=== PATIENT | male | born 1995 | race Caucasian/White ===

== ENCOUNTER 2018-01-10 16:30 | Emergency (ER) | payer OTHER ==
[2018-01-10] MEDS ORDERED: LIDOCAINE 1% MPF 5 ML VIAL ONE (17:23)
[2018-01-10] MEDS ORDERED: KETOROLAC 30 MG/ML INJ ONE (17:23)
[2018-01-10] MEDS ORDERED: NA CHLORIDE 0.9% 1,000 ML ONE (17:23)
[2018-01-10] MEDS ORDERED: CEFTRIAXONE/SWI 1gm 1 GM/10 ML SYR ONE (17:25)
[2018-01-10 17:47] LABS: Absolute Lymphocytes (CBC) 1.5 K/uL (0.7-4.9); Absolute Monocytes 1.2 K/uL (0.1-1.3); Absolute Neutrophil 10.4 K/uL (1.8-8.0); Basophils % 0.3 % (0-1.3); Eosinophils % 0.2 % (0-4.4); Hematocrit 45.2 % (39.6-49.0); Lymphocytes % 11.1 % (15.3-44.8); MCH 27.8 pg (27.0-35.0); MCV 83.5 fL (80-100); MPV 8.6 fL (7.6-11.3); Monocytes % 9.3 % (3.3-12.3); RBC Red Blood Cell Count 5.41 M/uL (4.33-5.43)
[2018-01-10 18:03] LABS: Albumin 4.3 g/dL (3.4-5.0); Bilirubin Total 3.1 mg/dL (0.2-1.0); Protein, Total 8.6 g/dL (6.4-8.2)
--- NOTE | 2018-01-10 18:06 | ER ---
Nurse's Notes [facility] Name: Lanre Ruth Age: 22 yrs Sex: Male : 1995 Arrival Date: 01/10/2018 Time: 16:33 Bed 20 Private MD: Out, [facility] Diagnosis: Oral Aphthous Ulcers;Cellulitis and Abscess of Left Hand PIP Index Finger;Streptococcal pharyngitis Presentation: 01/10 16:48 Presenting complaint: Patient states: Left index finger swelling and redness, a wound sg noted, pt has lanced several days ago, reports swelling to the Left side of neck, reports having a tonsillectomy several years ago. Transition of care: patient was not received from another setting of care. Onset of symptoms was January 10, 2018. Risk Assessment: Do you want to hurt yourself or someone else? Patient reports no desire to harm self or others. Initial Sepsis Screen: Does the patient meet any 2 criteria? HR > 90 bpm. Does the patient have a suspected source of infection? Yes: Skin breakdown/wound. Care prior to arrival: None. 16:48 Method Of Arrival: Ambulatory sg 16:48 Acuity: LUÍS 3 sg Historical: - Allergies: 16:50 No Known Allergies; sg - Home Meds: 16:50 None [Active]; sg - PMHx: 16:50 None; sg - PSHx: 16:50 Tonsillectomy; sg - Immunization history:: Adult Immunizations up to date, Last tetanus immunization: up to date. - Social history:: Smoking status: Patient uses tobacco products, denies chronic smoking, but will smoke occasionally. - Ebola Screening: : Patient negative for fever greater than or equal to 101.5 degrees Fahrenheit, and additional compatible Ebola Virus Disease symptoms Patient denies exposure to infectious person Patient denies travel to an Ebola-affected area in the 21 days before illness onset No symptoms or risks identified at this time. - Family history:: not pertinent. - Hospitalizations: : No recent hospitalization is reported. - History obtained from: friend. Screenin:10 Abuse screen: Denies threats or abuse. Nutritional screening: No deficits noted. em Tuberculosis screening: No symptoms or risk factors identified. Fall Risk None identified. Assessment: 17:30 General: Appears in no apparent distress. uncomfortable, Behavior is calm, cooperative, em Reports sore throat for 2 days, swelling noted to tonsils, reports hand swelling for 1 week, left hand swelling noted. Pain: Complains of pain in left aspect of posterior pharynx and PIP of left index finger Pain currently is 8 out of 10 on a pain scale. Neuro: Level of Consciousness is awake, alert, obeys commands, Oriented to person, place, time, situation. Cardiovascular: Capillary refill < 3 seconds Patient's skin is warm and dry. Respiratory: Airway is patent Respiratory effort is even, unlabored, Respiratory pattern is regular, symmetrical. GI: Abdomen is flat, Patient currently denies nausea, vomiting. : No signs and/or symptoms were reported regarding the genitourinary system. EENT: Throat is reddened has enlarged tonsils bilaterally with gag reflex absent, Reports difficulty swallowing since this morning. Derm: Skin is intact, Abscess located on PIP of left index finger is quarter sized. Musculoskeletal: Range of motion: intact in all extremities. 17:30 Reassessment: I agree with assessment completed by EMILY Marquez . aa5 18:37 Reassessment: Patient appears in no apparent distress at this time. Patient and/or em family updated on plan of care and expected duration. Pain level reassessed. Patient is alert, oriented x 3, equal unlabored respirations, skin warm/dry/pink. Patient states feeling better. Patient states symptoms have improved. Vital Signs: 16:50 BP 122 / 100; Pulse 102; Resp 17; Temp 99.8; Pulse Ox 99% on R/A; Weight 61.23 kg (R); sg Pain 8/10; 18:23 BP 121 / 61; Pulse 76; Resp 16; Pulse Ox 99% on R/A; Pain 3/10; em ED Course: 16:33 Patient arrived in ED. sb2 16:34 Out, of Town is Private Physician. sb2 16:49 Triage completed. sg 16:50 Arm band placed on. sg 16:52 [facility]. kav 16:52 Tani Plummer MD is Attending Physician. kav 17:02 Patient has correct armband on for positive identification. Bed in low position. Call em light in reach. Adult w/ patient. 17:16 Jimmy Anne LVN is Primary Nurse. em 17:30 No provider procedures requiring assistance completed. Inserted saline lock: 20 gauge em in right antecubital area, using aseptic technique. Blood collected. 17:30 Initial lab(s) drawn, by me, sent to lab. em 18:44 IV discontinued, intact, bleeding controlled, No redness/swelling at site. Pressure em dressing applied. Administered Medications: 17:38 Drug: Rocephin 1 grams Route: IV; Rate: bolus; Site: right antecubital; aa5 18:24 Follow up: Response: No adverse reaction; IV Status: Completed infusion; IV Intake: 10mlem 17:38 Drug: TORadol 30 mg Route: IVP; Site: right antecubital; aa5 18:24 Follow up: Response: No adverse reaction; Pain is decreased em 17:44 Drug: NS 0.9% 1000 ml Route: IV; Rate: 1 bolus; Site: right antecubital; em 17:55 Drug: Lidocaine (1 %) 5 mg {Note: administered by SARWAT Falk.} Route: Infiltration; em Site: wound; 18:24 Follow up: Response: No adverse reaction em Intake: 18:24 IV: 10ml; Total: 10ml. em Outcome: 18:06 Discharge ordered by . ka 18:44 Discharged to home ambulatory, with friend. em 18:44 Condition: good 18:44 Discharge instructions given to patient, Instructed on discharge instructions, follow up and referral plans. no drinking with medication, no driving heavy equipment, medication usage, wound care, Demonstrated understanding of instructions, follow-up care, medications, Prescriptions given X 5 18:46 Patient left the ED. em Addendum: 01/13/2018 08:23 Addendum: Culture Results: Positive wound culture. No further action required. Bacteria i w sensitive to prescribed antibiotic. Signatures: Cyril Pacheco RN RN sg Amanda Braden, TELECOMMUNICATIONS TECHNICIAN TELECOMMUNICATIONS TECHNICIAN Jimmy Crockett, FLIGHT ATTENDANT/INFLIGHT SUPERVISOR FLIGHT ATTENDANT/INFLIGHT SUPERVISOR em Jayshree Mazariegos RN RN Evelyn Godfrey RN RN aa5 Mohini Mayorga sb2 Corrections: (The following items were deleted from the chart) 01/10 18:44 16:30 No provider procedures requiring assistance completed. em em 18:44 16:30 Inserted saline lock: 20 gauge in right antecubital area, using aseptic em technique. Blood collected. em 18:44 16:30 Initial lab(s) drawn, by me, sent to lab. em em
--- NOTE | 2018-01-10 18:06 | EDPHYS ---
Physician Documentation [facility] Name: Lanre Ruth Age: 22 yrs Sex: Male : 1995 Arrival Date: 01/10/2018 Time: 16:33 Bed 20 Private MD: Out, [facility] ED Physician Tani Plummer HPI: 01/10 16:52 This 22 yrs old Male presents to ER via Ambulatory with complaints of Swollen kav Glands, Hand Swelling. 17:06 The patient presents with sore throat, dysphagia, of solids. The patient describes kav throat pain as burning. Onset: The symptoms/episode began/occurred acutely, 2 day(s) ago. The patient or guardian reports pain, swelling. The complaints affect the PIP of left index finger. Context: The problem was sustained at home, resulted from an unknown cause. Severity of symptoms: At their worst the symptoms were moderate, just prior to arrival, in the emergency department the symptoms a " 6" out of "10". Associated signs and symptoms:. patient presents with swollen, warm, erythema left hand of the PIP left index finger. he reports that his friends have been squeezing it trying to expel pustular discharge. this area is very tender to touch. he also c/o of fever/chills, sore throat and swollen lymph node left cervical and reports that he has been unable to swallow solid foods for the past 2 days owing to sore throat. Historical: - Allergies: 16:50 No Known Allergies; sg - Home Meds: 16:50 None [Active]; sg - PMHx: 16:50 None; sg - PSHx: 16:50 Tonsillectomy; sg - Immunization history:: Adult Immunizations up to date, Last tetanus immunization: up to date. - Social history:: Smoking status: Patient uses tobacco products, denies chronic smoking, but will smoke occasionally. - Ebola Screening: : Patient negative for fever greater than or equal to 101.5 degrees Fahrenheit, and additional compatible Ebola Virus Disease symptoms Patient denies exposure to infectious person Patient denies travel to an Ebola-affected area in the 21 days before illness onset No symptoms or risks identified at this time. - Family history:: not pertinent. - Hospitalizations: : No recent hospitalization is reported. - History obtained from: friend. ROS: 17:13 Eyes: Negative for injury, pain, redness, and discharge, Cardiovascular: Negative for kav chest pain, palpitations, and edema, Respiratory: Negative for shortness of breath, cough, wheezing, and pleuritic chest pain, Abdomen/GI: Negative for abdominal pain, nausea, vomiting, diarrhea, and constipation, Back: Negative for injury and pain, : Negative for injury, bleeding, discharge, and swelling, MS/Extremity: Negative for injury and deformity, Neuro: Negative for headache, weakness, numbness, tingling, and seizure, Psych: Negative for depression, anxiety, suicide ideation, homicidal ideation, and hallucinations, Allergy/Immunology: Negative for hives, rash, and allergies, Endocrine: Negative for neck swelling, polydipsia, polyuria, polyphagia, and marked weight changes, Hematologic/Lymphatic: Negative for swollen nodes, abnormal bleeding, and unusual bruising. 17:13 Constitutional: Positive for chills, fever, poor PO intake, Negative for body aches, weight loss. 17:13 ENT: Positive for of the left aspect of posterior pharynx, sinus congestion, sore throat. 17:13 Skin: Positive for abscess, cellulitis, erythema, swelling, of the PIP of left index finger. Exam: 17:13 Head/Face: Normocephalic, atraumatic. Eyes: Pupils equal round and reactive to light, kav extra-ocular motions intact. Lids and lashes normal. Conjunctiva and sclera are non-icteric and not injected. Cornea within normal limits. Periorbital areas with no swelling, redness, or edema. Chest/axilla: Normal chest wall appearance and motion. Nontender with no deformity. No lesions are appreciated. Cardiovascular: Regular rate and rhythm with a normal S1 and S2. No gallops, murmurs, or rubs. Normal PMI, no JVD. No pulse deficits. Respiratory: Lungs have equal breath sounds bilaterally, clear to auscultation and percussion. No rales, rhonchi or wheezes noted. No increased work of breathing, no retractions or nasal flaring. Abdomen/GI: Soft, non-tender, with normal bowel sounds. No distension or tympany. No guarding or rebound. No evidence of tenderness throughout. Back: No spinal tenderness. No costovertebral tenderness. Full range of motion. MS/ Extremity: Pulses equal, no cyanosis. Neurovascular intact. Full, normal range of motion. Neuro: Awake and alert, GCS 15, oriented to person, place, time, and situation. Cranial nerves II-XII grossly intact. Motor strength 5/5 in all extremities. Sensory grossly intact. Cerebellar exam normal. Normal gait. Psych: Awake, alert, with orientation to person, place and time. Behavior, mood, and affect are within normal limits. 17:13 Constitutional: The patient appears in no acute distress, alert, awake, non-diaphoretic, non-toxic, well developed, well hydrated, well groomed, well nourished, febrile, in obvious distress, uncomfortable. 17:13 ENT: Posterior pharynx: erythema, that is moderate, blisters. 17:13 Neck: Lymph nodes: lymphadenopathy is appreciated, posterior cervical nodes, left. 17:13 Skin: abscess, that is moderate sized, approximately 2 cm(s), with surrounding cellulitis, that is moderate, cellulitis, that is moderate, well demarcated, on the PIP of left index finger. Vital Signs: 16:50 BP 122 / 100; Pulse 102; Resp 17; Temp 99.8; Pulse Ox 99% on R/A; Weight 61.23 kg (R); sg Pain 8/10; 18:23 BP 121 / 61; Pulse 76; Resp 16; Pulse Ox 99% on R/A; Pain 3/10; em Procedures: 17:13 I \\T\\ D: Incision and drainage was performed for an abscess of the left PIP of left index kav finger Prepped with Betadine, Anesthetized with 3 ml's 1% Lidocaine. Incised with #11 blade. Drained small amount Dressing: non-Adherent dressing, the patient tolerated the procedure well. MDM: 17:05 Medical screening is not applicable. [facility] 17:13 Data reviewed: vital signs, nurses notes, lab test result(s). 18:05 Data reviewed: lab test result(s), strep positive. [facility] 01/10 17:05 Order name: Strep: left side of throat; Complete Time: 18:02 [facility] 01/10 17:05 Order name: CBC with Diff; Complete Time: 18:02 [facility] 01/10 17:05 Order name: CMP; Complete Time: 18:04 [facility] 01/10 17:19 Order name: Wound Culture 01/10 17:05 Order name: I\\T\\D Setup; Complete Time: 18:38 kav Administered Medications: 17:38 Drug: Rocephin 1 grams Route: IV; Rate: bolus; Site: right antecubital; aa5 18:24 Follow up: Response: No adverse reaction; IV Status: Completed infusion; IV Intake: 10mlem 17:38 Drug: TORadol 30 mg Route: IVP; Site: right antecubital; aa5 18:24 Follow up: Response: No adverse reaction; Pain is decreased em 17:44 Drug: NS 0.9% 1000 ml Route: IV; Rate: 1 bolus; Site: right antecubital; em 17:55 Drug: Lidocaine (1 %) 5 mg {Note: administered by NP. Deya} Route: Infiltration; em Site: wound; 18:24 Follow up: Response: No adverse reaction em Disposition: 01/10/18 18:06 Discharged to Home. Impression: Oral Aphthous Ulcers, Cellulitis and Abscess of Left Hand PIP Index Finger, Streptococcal pharyngitis. - Condition is Stable. - Discharge Instructions: Pharyngitis, Strep Throat, Abscess, [id number], Cellulitis, [id number]. - Prescriptions for mupirocin 2 % Topical ointment - apply 1 application by TOPICAL route 3 times per day; 1 tube. Amoxicillin 875 mg Oral Tablet - take 1 tablet by ORAL route every 12 hours for 10 days; 20 tablet. Ibuprofen 800 mg Oral Tablet - take 1 tablet by ORAL route every 8 hours As needed take with food; 30 tablet. Tylenol- Codeine #3 300-30 mg Oral Tablet - take 2 tablet by ORAL route every 6 hours As needed; 30 tablet. Doxycycline Hyclate 100 mg Oral Tablet - take 1 tablet by ORAL route every 12 hours; 20 tablet. - Work release form, Medication Reconciliation Form, Thank You Letter, Antibiotic Education, Prescription Opioid Use form. - Follow up: Private Physician; When: 2 - 3 days; Reason: Recheck today's complaints, Continuance of care, Re-evaluation by your physician. - Problem is new. - Symptoms have improved. Addendum: 01/12/2018 20:35 Co-signature as Attending Physician, Tani Plummer MD I agree with the assessment and k dr plan of care. Signatures: Dispatcher [employer] Cyril Euceda, RN RN sg Tani Plummer MD MD kdr Vern, Katherine, BILLBOARD ERECTOR BILLBOARD ERECTOR Jimmy Crockett, SUPERINTENDENT RENTING MANAGING SUPERINTENDENT RENTING MANAGING Evelyn Stephenson, RN RN aa5 Corrections: (The following items were deleted from the chart) 01/10 18:46 18:06 01/10/2018 18:06 Discharged to Home. Impression: Oral Aphthous Ulcers; Cellulitis em and Abscess of Left Hand PIP Index Finger; Streptococcal pharyngitis. Condition is Stable. Discharge Instructions: Abscess, [id number], Cellulitis, [id number]-Izma. Prescriptions for mupirocin 2 % Topical ointment - apply 1 application by TOPICAL route 3 times per day; 1 tube, Amoxicillin 875 mg Oral Tablet - take 1 tablet by ORAL route every 12 hours for 10 days; 20 tablet, Ibuprofen 800 mg Oral Tablet - take 1 tablet by ORAL route every 8 hours As needed take with food; 30 tablet, Tylenol-Codeine #3 300-30 mg Oral Tablet - take 2 tablet by ORAL route every 6 hours As needed; 30 tablet, Doxycycline Hyclate 100 mg Oral Tablet - take 1 tablet by ORAL route every 12 hours; 20 tablet. and Forms are Medication Reconciliation Form, Thank You Letter, Antibiotic Education, Prescription Opioid Use. Follow up: Private Physician; When: 2 - 3 days; Reason: Recheck today's complaints, Continuance of care, Re-evaluation by your physician. Problem is new. Symptoms have improved. kav
== END 2018-01-10 18:46 | disposition home or self-care (01) ==
LOC: ER 16:30
PROC: 0H9GXZZ Drainage of Left Hand Skin, External Approach (ICD-10-PCS; principal; 2018-01-10)
DX: K12.0 Recurrent oral aphthae (principal); J02.0 Streptococcal pharyngitis; L03.012 Cellulitis of left finger; Z72.0 Tobacco use
CPT/HCPCS: 36415; 80053; 85025; 87070; 87077; 87081; 87186; 87205; 96365; 96375; 99284; J0696; J7030

== ENCOUNTER 2019-02-10 18:27 | Emergency (ER) | payer OTHER, SELFPAY ==
[2019-02-10] MEDS ORDERED: NA CHLORIDE 0.9% 1,000 ML ONE (19:19)
[2019-02-10] MEDS ORDERED: ONDANSETRON 4 MG/2 ML VIAL ONE (19:19)
[2019-02-10 19:37] LABS: Absolute Lymphocytes (CBC) 2.4 K/uL (0.7-4.9); Basophils % 0.7 % (0-1.3); Hematocrit 41.5 % (39.6-49.0); Lymphocytes % 33.2 % (15.3-44.8); MPV 9.1 fL (7.6-11.3)
[2019-02-10 20:00] LABS: Albumin 4.2 g/dL (3.4-5.0); Bilirubin Total 0.5 mg/dL (0.2-1.0); Potassium 3.6 mmol/L (3.5-5.1); Protein, Total 7.7 g/dL (6.4-8.2)
[2019-02-10 20:08] LABS: Urine Blood NEGATIVE (NEG); Urine Glucose NEGATIVE (NEG); Urine Protein NEGATIVE (NEG); Urine Specific Gravity 1.025 (1.005-1.030)
--- NOTE | 2019-02-10 20:14 | RAD REPORT ---
EXAM DESCRIPTION: CT - Head Brain Wo Cont - 02/10/2019 7:55 pm CLINICAL HISTORY: HEADACHE COMPARISON: No comparisons TECHNIQUE: All CT scans are performed using dose optimization technique as appropriate and may inclu de automated exposure control or mA/KV adjustment according to patient size. FINDINGS: No intracranial hemorrhage, hydrocephalus or extra-axial fluid collection.No areas of brai n edema or evidence of midline shift. Ethmoid air cell opacification is noted compatible with mild sinusitis. The calvarium is intact. IMPRESSION: No acute intracranial abnormality.
--- NOTE | 2019-02-10 20:36 | ER ---
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 Transition of care: patient was not received from another setting of care. Onset of symptoms was February 10, 2019. Risk Assessment: Do you want to hurt yourself or someone else? Patient reports no desire to harm self or others. Initial Sepsis Screen: Does the patient meet any 2 criteria? No. Patient's initial sepsis screen is negative. Does the patient have a suspected source of infection? No. Patient's initial sepsis screen is negative. Care prior to arrival: None. 18:42 Method Of Arrival: Ambulatory la1 18:42 Acuity: LUÍS 3 la1 Historical: - Allergies: 18:43 No Known Allergies; la1 - PMHx: 18:43 None; la1 - Immunization history:: Adult Immunizations up to date. - Social history:: Smoking status: Patient/guardian denies using tobacco. - Ebola Screening: : No symptoms or risks identified at this time. Screenin:06 Abuse screen: Denies threats or abuse. Nutritional screening: No deficits noted. ea Tuberculosis screening: No symptoms or risk factors identified. Fall Risk None identified. Assessment: 19:05 General: Appears in no apparent distress. Behavior is appropriate for age. Pain: ea Complains of pain in headache. Neuro: Level of Consciousness is awake, alert, obeys commands, Oriented to person, place, time, situation. Cardiovascular: Patient's skin is warm and dry. Respiratory: Airway is patent Respiratory effort is even, unlabored, Respiratory pattern is regular, symmetrical. EENT: Reports nose bleeds. Derm: Skin is pink, warm \T\ dry. 20:07 Reassessment: Patient and/or family updated on plan of care and expected duration. Pain ea level reassessed. Patient is alert, oriented x 3, equal unlabored respirations, skin warm/dry/pink. Returned from CT. 21:30 Reassessment: Patient and/or family updated on plan of care and expected duration. Pain ea level reassessed. Patient is alert, oriented x 3, equal unlabored respirations, skin warm/dry/pink. Discharge instruction given to patient, verbalized the understanding of instruction. Pt left with significant other, pt tolerating well. Vital Signs: 18:44 BP 121 / 72; Pulse 61; Resp 16; Temp 97.4; Pulse Ox 98% on R/A; Weight 74.84 kg; Height la1 5 ft. 7 in. (170.18 cm); 19:32 BP 105 / 71; Pulse 48; Resp 18; Pulse Ox 100% ; ea 20:30 BP 130 / 68; Pulse 60; Resp 18; Pulse Ox 99% on R/A; ea 21:20 BP 127 / 60; Pulse 60; Resp 18; Pulse Ox 99% on R/A; ea 18:44 Body Mass Index 25.84 (74.84 kg, 170.18 cm) la1 ED Course: 18:29 Patient arrived in ED. as 18:43 Triage completed. la1 18:44 Arm band placed on left wrist. la1 19:01 Khalif Walters MD is Attending Physician. agata 19:03 Lorena Sarmiento RN is Primary Nurse. ea 19:06 Patient has correct armband on for positive identification. Bed in low position. Call ea light in reach. 19:54 CT completed. Patient tolerated procedure well. Patient moved to CT. Patient moved back tx from CT. 19:55 CT Head Brain wo Cont In Process Unspecified. EDMS 20:34 Awilda Valentine MD is Referral Physician. agata 21:28 No provider procedures requiring assistance completed. IV discontinued, intact, ea bleeding controlled, No redness/swelling at site. Pressure dressing applied. Administered Medications: 19:29 Drug: NS 0.9% 1000 ml Route: IV; Rate: 1 bolus; Site: right antecubital; ea 20:00 Follow up: Response: No adverse reaction; IV Status: Completed infusion; IV Intake: ea 1000ml 19:29 Drug: Zofran 4 mg Route: IVP; Site: right antecubital; ea 20:54 Follow up: Response: No adverse reaction; Marked relief of symptoms ea 20:35 Drug: Rocephin (cefTRIAXone) 1 grams Route: IM; Site: right gluteus; ea 21:32 Follow up: Response: No adverse reaction ea 21:05 Drug: Augmentin 875 mg Route: PO; ea 21:32 Follow up: Response: No adverse reaction ea 21:06 Not Given (Other Intervention Used): Rocephin 1 grams IV at per protocol once; Given ea slow IV push per pharmacy instructions Intake: 20:00 IV: 1000ml; Total: 1000ml. ea Outcome: 20:35 Discharge ordered by . agata 21:28 Discharged to home ambulatory, with significant other. ea 21:28 Condition: stable 21:28 Discharge instructions given to patient, Instructed on discharge instructions, follow up and referral plans. medication usage, Demonstrated understanding of instructions, follow-up care, medications, Prescriptions given X 1. 21:31 Patient left the ED. ea Signatures: Dispatcher [employer] EDKhalif Yanez MD MD cha Martinez, Amelia as Attema, Lee RN RN laRubio Chappell Elena, RN RN yohana
--- NOTE | 2019-02-10 20:37 | EDPHYS ---
Physician Documentation [facility] Name: Lanre Ruth Age: 23 yrs Sex: Male : 1995 Arrival Date: 02/10/2019 Time: 18:29 Bed 13 Private MD: ED Physician Khalif Walters HPI: 02/10 19:57 This 23 yrs old Male presents to ER via Ambulatory with complaints of agata Headache, Nose Bleed, Vomiting, General Weakness. 19:57 The patient complains of pain to the forehead, left frontal area and right frontal agata area. The patient describes the headache as aching. Onset: The symptoms/episode began/occurred 3 day(s) ago. Associated signs and symptoms: The patient has no apparent associated signs or symptoms. Historical: - Allergies: 18:43 No Known Allergies; la1 - PMHx: 18:43 None; la1 - Immunization history:: Adult Immunizations up to date. - Social history:: Smoking status: Patient/guardian denies using tobacco. - Ebola Screening: : No symptoms or risks identified at this time. ROS: 19:58 Constitutional: Negative for fever, chills, and weight loss, Eyes: Negative for injury, agata pain, redness, and discharge, Neck: Negative for injury, pain, and swelling, Cardiovascular: Negative for chest pain, palpitations, and edema, Respiratory: Negative for shortness of breath, cough, wheezing, and pleuritic chest pain, Abdomen/GI: Negative for abdominal pain, nausea, vomiting, diarrhea, and constipation, Back: Negative for injury and pain, : Negative for injury, bleeding, discharge, and swelling, MS/Extremity: Negative for injury and deformity, Skin: Negative for injury, rash, and discoloration, Psych: Negative for depression, anxiety, suicide ideation, homicidal ideation, and hallucinations, Allergy/Immunology: Negative for hives, rash, and allergies, Endocrine: Negative for neck swelling, polydipsia, polyuria, polyphagia, and marked weight changes, Hematologic/Lymphatic: Negative for swollen nodes, abnormal bleeding, and unusual bruising. 19:58 ENT: Positive for nose bleed. 19:58 Neuro: Positive for headache, weakness. Exam: 19:59 Constitutional: This is a well developed, well nourished patient who is awake, alert, agata and in no acute distress. Head/Face: Normocephalic, atraumatic. Eyes: Pupils equal round and reactive to light, extra-ocular motions intact. Lids and lashes normal. Conjunctiva and sclera are non-icteric and not injected. Cornea within normal limits. Periorbital areas with no swelling, redness, or edema. ENT: Nares patent. No nasal discharge, no septal abnormalities noted. Tympanic membranes are normal and external auditory canals are clear. Oropharynx with no redness, swelling, or masses, exudates, or evidence of obstruction, uvula midline. Mucous membranes moist. Neck: Trachea midline, no thyromegaly or masses palpated, and no cervical lymphadenopathy. Supple, full range of motion without nuchal rigidity, or vertebral point tenderness. No Meningismus. Chest/axilla: Normal chest wall appearance and motion. Nontender with no deformity. No lesions are appreciated. Cardiovascular: Regular rate and rhythm with a normal S1 and S2. No gallops, murmurs, or rubs. Normal PMI, no JVD. No pulse deficits. Respiratory: Lungs have equal breath sounds bilaterally, clear to auscultation and percussion. No rales, rhonchi or wheezes noted. No increased work of breathing, no retractions or nasal flaring. Abdomen/GI: Soft, non-tender, with normal bowel sounds. No distension or tympany. No guarding or rebound. No evidence of tenderness throughout. Back: No spinal tenderness. No costovertebral tenderness. Full range of motion. Male : Normal genitalia with no discharge or lesions. Skin: Warm, dry with normal turgor. Normal color with no rashes, no lesions, and no evidence of cellulitis. MS/ Extremity: Pulses equal, no cyanosis. Neurovascular intact. Full, normal range of motion. Neuro: Awake and alert, GCS 15, oriented to person, place, time, and situation. Cranial nerves II-XII grossly intact. Motor strength 5/5 in all extremities. Sensory grossly intact. Cerebellar exam normal. Normal gait. Psych: Awake, alert, with orientation to person, place and time. Behavior, mood, and affect are within normal limits. Vital Signs: 18:44 BP 121 / 72; Pulse 61; Resp 16; Temp 97.4; Pulse Ox 98% on R/A; Weight 74.84 kg; Height la1 5 ft. 7 in. (170.18 cm); 19:32 BP 105 / 71; Pulse 48; Resp 18; Pulse Ox 100% ; ea 20:30 BP 130 / 68; Pulse 60; Resp 18; Pulse Ox 99% on R/A; ea 21:20 BP 127 / 60; Pulse 60; Resp 18; Pulse Ox 99% on R/A; ea 18:44 Body Mass Index 25.84 (74.84 kg, 170.18 cm) la1 MDM: 19:01 Patient medically screened. [facility] 20:00 Data reviewed: vital signs, nurses notes, lab test result(s), radiologic studies, CT agata scan. 02/10 19:08 Order name: CBC with Diff; Complete Time: 20:12 [facility] 02/10 19:08 Order name: Comprehensive Metabolic Panel; Complete Time: 20:12 [facility] 02/10 19:08 Order name: PT-INR; Complete Time: 20:12 [facility] 02/10 19:08 Order name: Ptt, Activated; Complete Time: 20:12 [facility] 02/10 20:05 Order name: Urine Dipstick--Ancillary (enter results) ag4 02/10 20:10 Order name: Urine Dipstick-Ancillary; Complete Time: 20:12 EDMS 02/10 19:08 Order name: Urine Dipstick-Ancillary (obtain specimen); Complete Time: 20:08 [facility] 02/10 19:08 Order name: CT Head Brain wo Cont; Complete Time: 20:33 [facility] Administered Medications: 19:29 Drug: NS 0.9% 1000 ml Route: IV; Rate: 1 bolus; Site: right antecubital; ea 20:00 Follow up: Response: No adverse reaction; IV Status: Completed infusion; IV Intake: ea 1000ml 19:29 Drug: Zofran 4 mg Route: IVP; Site: right antecubital; ea 20:54 Follow up: Response: No adverse reaction; Marked relief of symptoms ea 20:35 Drug: Rocephin (cefTRIAXone) 1 grams Route: IM; Site: right gluteus; ea 21:32 Follow up: Response: No adverse reaction ea 21:05 Drug: Augmentin 875 mg Route: PO; ea 21:32 Follow up: Response: No adverse reaction ea 21:06 Not Given (Other Intervention Used): Rocephin 1 grams IV at per protocol once; Given ea slow IV push per pharmacy instructions Disposition: 02/10/19 20:35 Discharged to Home. Impression: Headache, Epistaxis, Acute ethmoidal sinusitis. - Condition is Stable. - Discharge Instructions: Nosebleed, Adult, Sinus Headache, Sinusitis, Adult, Sinusitis, Adult, [id number]. - Prescriptions for Augmentin 875- 125 mg Oral Tablet - take 1 tablet by ORAL route every 12 hours for 10 days; 20 tablet. Ibuprofen 600 mg Oral Tablet - take 1 tablet by ORAL route every 6 hours As needed take with food; 20 tablet. Zofran 4 mg Oral Tablet - take 1 tablet by ORAL route every 12 hours As needed; 14 tablet. Daina- D 12 Hour 60-120 mg Oral Tablet Sustained Release 12 hr - take 1 tablet by ORAL route every 12 hours As needed; 20 tablet. - Medication Reconciliation Form, Thank You Letter, Antibiotic Education, Prescription Opioid Use, Work release form form. - Follow up: Private Physician; When: 2 - 3 days; Reason: Recheck today's complaints, Continuance of care, Re-evaluation by your physician. Follow up: Awilda Valentine MD; When: 2 - 3 days; Reason: Recheck today's complaints, Re-evaluation by your physician. - Problem is new. - Symptoms have improved. Signatures: Dispatcher [employer] EDTX Khalif Walters MD MD cha Attema, Lee RN RN Lorena Newberry RN RN ea Corrections: (The following items were deleted from the chart) 21:31 20:35 02/10/2019 20:35 Discharged to Home. Impression: Headache; Epistaxis; Acute ea ethmoidal sinusitis. Condition is Stable. Forms are Medication Reconciliation Form, Thank You Letter, Antibiotic Education, Prescription Opioid Use. Follow up: Private Physician; When: 2 - 3 days; Reason: Recheck today's complaints, Continuance of care, Re-evaluation by your physician. Follow up: Awilda Valentine; When: 2 - 3 days; Reason: Recheck today's complaints, Re-evaluation by your physician. Problem is new. Symptoms have improved. agata
[2019-02-10] MEDS ORDERED: CEFTRIAXONE/SWI 1gm 0 GM/0 ML SYR ONE (20:54)
[2019-02-10] MEDS ORDERED: AMOX/K CLAV 875 MG TAB ONE (20:54)
[2019-02-10] MEDS ORDERED: CEFTRIAXONE 1000 MG/VIAL ONE (20:59)
== END 2019-02-10 21:31 | disposition home or self-care (01) ==
LOC: ER 18:27
DX: J01.20 Acute ethmoidal sinusitis, unspecified (principal); R04.0 Epistaxis
CPT/HCPCS: 36415; 70450; 80053; 81003; 85025; 85610; 85730; 96361; 96372; 96374; 99284; J0696; J2405; J7030

== ENCOUNTER 2019-04-16 12:20 | Emergency (ER) | payer SELFPAY ==
[2019-04-16] MEDS ORDERED: HYDROCODONE/APAP 10/325 TAB ONE (12:48)
[2019-04-16] MEDS ORDERED: KETOROLAC 30 MG/ML INJ ONE (12:48)
--- NOTE | 2019-04-16 12:50 | ER ---
Nurse's Notes [facility] Name: Lanre Ruth Age: 23 yrs Sex: Male : 1995 Arrival Date: 04/16/2019 Time: 12:22 Bed 6 Private MD: Diagnosis: Low back pain Presentation: 04/16 12:33 Presenting complaint: Patient states: last Saturday , i helped somebody in moving mg2 furnitures and today i think i messed my back while lifting a pipe at work. Transition of care: patient was not received from another setting of care. Onset of symptoms was March 2019. Risk Assessment: Do you want to hurt yourself or someone else? Patient reports no desire to harm self or others. Initial Sepsis Screen: Does the patient meet any 2 criteria? No. Patient's initial sepsis screen is negative. Does the patient have a suspected source of infection? No. Patient's initial sepsis screen is negative. Care prior to arrival: None. 12:33 Method Of Arrival: Ambulatory mg2 12:33 Acuity: LUÍS 4 mg2 Triage Assessment: 13:15 General: Appears in no apparent distress. comfortable, Behavior is calm, cooperative. mg2 13:15 Musculoskeletal: Circulation, motion, and sensation intact. Capillary refill < 3 mg2 seconds. Historical: - Allergies: 12:35 No Known Allergies; mg2 - Home Meds: 12:35 None [Active]; mg2 - PMHx: 12:35 None; mg2 - PSHx: 12:35 None; mg2 - Immunization history:: Flu vaccine is up to date. - Social history:: Smoking status: Patient uses tobacco products, uses dip, Patient uses alcohol, only on a social basis. Patient/guardian denies using street drugs, IV drugs. - Ebola Screening: : No symptoms or risks identified at this time. Screenin:15 Abuse screen: Denies threats or abuse. Denies injuries from another. Nutritional mg2 screening: No deficits noted. Nutritional screening: No deficits noted. Tuberculosis screening: Tuberculosis screening: Never had TB. 13:15 Fall Risk None identified. mg2 Assessment: 13:15 General: Appears in no apparent distress. comfortable, Behavior is calm, cooperative. mg2 Pain: Complains of pain in lumbar area Pain does not radiate. Pain currently is 7 out of 10 on a pain scale. Quality of pain is described as aching, Pain began 30 min ago. 2-3 days ago. Is intermittent, Alleviated by heat application, cold application. Neuro: Level of Consciousness is awake, alert, obeys commands, Oriented to person, place, time, situation. Cardiovascular: Capillary refill < 3 seconds Patient's skin is warm and dry. Respiratory: Airway is patent Respiratory effort is even, unlabored, Respiratory pattern is regular, symmetrical. GI: No signs and/or symptoms were reported involving the gastrointestinal system. : No signs and/or symptoms were reported regarding the genitourinary system. EENT: Derm: Skin is intact, is healthy with good turgor, Skin is pink, warm \T\ dry. normal. 13:15 Musculoskeletal: Circulation, motion, and sensation intact. Capillary refill < 3 mg2 seconds, Reports pain in lumbar area. Vital Signs: 12:34 BP 115 / 84; Pulse 66; Resp 18; Temp 98.4; Pulse Ox 100% on R/A; Weight 75.75 kg; mg2 Height 5 ft. 7 in. (170.18 cm); Pain 8/10; 12:34 Body Mass Index 26.16 (75.75 kg, 170.18 cm) mg2 ED Course: 12:22 Patient arrived in ED. mr 12:29 Rosi Duron FNP-C is [facility]. kb 12:29 Niels Patel MD is Attending Physician. kb 12:32 Mj Sun, ASHLEY is Primary Nurse. mg2 12:34 Triage completed. mg2 12:35 Arm band placed on. mg2 13:15 Patient has correct armband on for positive identification. mg2 13:15 No provider procedures requiring assistance completed. mg2 13:15 Patient did not have IV access during this emergency room visit. mg2 Administered Medications: 12:53 Drug: Jasper 10 mg-325 mg 1 tabs Route: PO; mg2 13:24 Follow up: Response: No adverse reaction; Medication administered at discharge. mg2 12:53 Drug: TORadol 30 mg Route: IM; Site: right gluteus; mg2 13:24 Follow up: Response: No adverse reaction; Medication administered at discharge. mg2 Outcome: 12:49 Discharge ordered by . kb 13:23 Patient left the ED. iw 13:24 Discharged to home ambulatory, with family. mg2 13:24 Condition: stable 13:24 Discharge instructions given to patient, family, Instructed on discharge instructions, follow up and referral plans. medication usage, Demonstrated understanding of instructions, follow-up care, medications, Prescriptions given X 2. Signatures: Rosi Duron, KEVIN NOLAND-Smitha Juarez Irene, RN RN iw Mj Sun RN RN mg2
--- NOTE | 2019-04-16 12:51 | EDPHYS ---
Physician Documentation [facility] Name: Lanre Ruth Age: 23 yrs Sex: Male : 1995 Arrival Date: 04/16/2019 Time: 12:22 Bed 6 Private MD: ED Physician Niels Patel HPI: 04/16 12:46 This 23 yrs old Male presents to ER via Ambulatory with complaints of Back kb Pain. 12:46 The patient presents with pain that is acute, and tenderness. The symptoms are located kb in the thoracic area and lumbar area. Onset: The symptoms/episode began/occurred 4 day(s) ago. The pain does not radiate. Associated signs and symptoms: The patient has no apparent associated signs or symptoms. The problem was sustained when lifting heavy object. Modifying factors: The patient symptoms are alleviated by nothing, the patient symptoms are aggravated by any movement. Severity of symptoms: At their worst the symptoms were moderate, in the emergency department the symptoms are unchanged. The patient has not experienced similar symptoms in the past. The patient has not recently seen a physician. Pt reports he was lifting furniture at the beginning of the week and had some pain in his back that has been getting a little worse. Reports he went to work today and lifted a heavy pipe which caused more pain. Ambulates with steady gait. No urinary or bowel symptoms. States "my work made me come to get evaluated and get a note that says when I can return.". Historical: - Allergies: 12:35 No Known Allergies; mg2 - Home Meds: 12:35 None [Active]; mg2 - PMHx: 12:35 None; mg2 - PSHx: 12:35 None; mg2 - Immunization history:: Flu vaccine is up to date. - Social history:: Smoking status: Patient uses tobacco products, uses dip, Patient uses alcohol, only on a social basis. Patient/guardian denies using street drugs, IV drugs. - Ebola Screening: : No symptoms or risks identified at this time. ROS: 12:45 Constitutional: Negative for fever, chills, and weight loss, ENT: Negative for injury, kb pain, and discharge, Neck: Negative for injury, pain, and swelling, Cardiovascular: Negative for chest pain, palpitations, and edema, Respiratory: Negative for shortness of breath, cough, wheezing, and pleuritic chest pain, Abdomen/GI: Negative for abdominal pain, nausea, vomiting, diarrhea, and constipation, : Negative for injury, bleeding, discharge, and swelling, MS/Extremity: Negative for injury and deformity, Skin: Negative for injury, rash, and discoloration, Neuro: Negative for headache, weakness, numbness, tingling, and seizure. 12:45 Back: Positive for pain at rest, pain with movement, of the thoracic area and lumbar area. Exam: 12:45 Constitutional: This is a well developed, well nourished patient who is awake, alert, kb and in no acute distress. Head/Face: Normocephalic, atraumatic. ENT: Nares patent. No nasal discharge, no septal abnormalities noted. Tympanic membranes are normal and external auditory canals are clear. Oropharynx with no redness, swelling, or masses, exudates, or evidence of obstruction, uvula midline. Mucous membranes moist. Neck: Trachea midline, no thyromegaly or masses palpated, and no cervical lymphadenopathy. Supple, full range of motion without nuchal rigidity, or vertebral point tenderness. No Meningismus. Chest/axilla: Normal chest wall appearance and motion. Nontender with no deformity. No lesions are appreciated. Cardiovascular: Regular rate and rhythm with a normal S1 and S2. No gallops, murmurs, or rubs. Normal PMI, no JVD. No pulse deficits. Respiratory: Lungs have equal breath sounds bilaterally, clear to auscultation and percussion. No rales, rhonchi or wheezes noted. No increased work of breathing, no retractions or nasal flaring. Abdomen/GI: Soft, non-tender, with normal bowel sounds. No distension or tympany. No guarding or rebound. No evidence of tenderness throughout. Skin: Warm, dry with normal turgor. Normal color with no rashes, no lesions, and no evidence of cellulitis. MS/ Extremity: Pulses equal, no cyanosis. Neurovascular intact. Full, normal range of motion. Neuro: Awake and alert, GCS 15, oriented to person, place, time, and situation. Cranial nerves II-XII grossly intact. Motor strength 5/5 in all extremities. Sensory grossly intact. Cerebellar exam normal. Normal gait. 12:45 Back: pain, that is mild, that is moderate, of the thoracic area and lumbar area, ROM is painful, with all movement, normal spinal alignment noted. Vital Signs: 12:34 BP 115 / 84; Pulse 66; Resp 18; Temp 98.4; Pulse Ox 100% on R/A; Weight 75.75 kg; mg2 Height 5 ft. 7 in. (170.18 cm); Pain 8/10; 12:34 Body Mass Index 26.16 (75.75 kg, 170.18 cm) mg2 MDM: 12:29 Patient medically screened. kb 12:45 Data reviewed: vital signs, nurses notes. Data interpreted: Pulse oximetry: on room air kb is 100 %. Interpretation: normal. Counseling: I had a detailed discussion with the patient and/or guardian regarding: the historical points, exam findings, and any diagnostic results supporting the discharge/admit diagnosis, the need for outpatient follow up, a family practitioner, to return to the emergency department if symptoms worsen or persist or if there are any questions or concerns that arise at home. Administered Medications: 12:53 Drug: Flippin 10 mg-325 mg 1 tabs Route: PO; mg2 13:24 Follow up: Response: No adverse reaction; Medication administered at discharge. mg2 12:53 Drug: TORadol 30 mg Route: IM; Site: right gluteus; mg2 13:24 Follow up: Response: No adverse reaction; Medication administered at discharge. mg2 Disposition: 04/16/19 12:49 Discharged to Home. Impression: Low back pain. - Condition is Stable. - Discharge Instructions: Back Injury Prevention, [id number], Back Pain, Adult, [id number]. - Prescriptions for Skelaxin 800 mg Oral Tablet - take 1 tablet by ORAL route every 8 hours As needed; 21 tablet. Diclofenac Sodium 75 mg Oral Tablet, Delayed Release (E.C.) - take 1 tablet by ORAL route 2 times per day As needed; 30 tablet. - Medication Reconciliation Form, Thank You Letter, Antibiotic Education, Prescription Opioid Use, Work release form form. - Follow up: Emergency Department; When: As needed; Reason: Worsening of condition. Follow up: Private Physician; When: 2 - 3 days; Reason: Recheck today's complaints, Continuance of care, Re-evaluation by your physician. Addendum: 04/17/2019 15:17 Co-signature as Attending Physician, Niels Patel MD. g s Signatures: Rosi Duron FNP-C [employer]-Jayshree Barbosa RN RN iw Niels Patel MD MD gs Mj Sun RN RN mg2 Corrections: (The following items were deleted from the chart) 04/16 13:23 12:49 04/16/2019 12:49 Discharged to Home. Impression: Low back pain. Condition is iw Stable. Forms are Medication Reconciliation Form, Thank You Letter, Antibiotic Education, Prescription Opioid Use. Follow up: Emergency Department; When: As needed; Reason: Worsening of condition. Follow up: Private Physician; When: 2 - 3 days; Reason: Recheck today's complaints, Continuance of care, Re-evaluation by your physician. kb
[2019-04-16 13:35] VITALS: BP 115/84; TEMP 98.4; O2SAT 100
== END 2019-04-16 13:23 | disposition home or self-care (01) ==
LOC: ER 12:20
DX: M54.5 Low back pain (principal); F17.220 Nicotine dependence, chewing tobacco, uncomplicated
CPT/HCPCS: 96372; 99283

== ENCOUNTER 2020-02-16 21:40 | Emergency (ER) | payer SELFPAY ==
[2020-02-16] MEDS ORDERED: LIDOCAINE 1% MPF 5 ML VIAL ONE (22:14)
--- NOTE | 2020-02-16 22:37 | EDPHYS ---
Physician Documentation [facility] Name: Lanre Ruth Age: 24 yrs Sex: Male : 1995 Arrival Date: 02/16/2020 Time: 21:44 Bed 24 Private MD: ED Physician Leo Calixto HPI: 02/15 22:03 This 24 yrs old Male presents to ER via Ambulatory with complaints of jr8 Infected spot on chest. 22:03 the patient presents with a swollen area of the anterior aspect of left upper chest. jr8 Description: The affected area is small, localized, erythematous, raised. Onset: The symptoms/episode began/occurred gradually, 2 day(s) ago. Possible cause(s): unknown. Associated signs and symptoms: The patient has no apparent associated signs or symptoms. Modifying factors: the symptoms are alleviated by nothing, the symptoms are aggravated by pressure, sitting, squeezing the lesion and expressing the contents, touching. Severity of symptoms: At their worst the symptoms were mild, in the emergency department the symptoms are unchanged. The patient has not experienced similar symptoms in the past. The patient has not recently seen a physician. Historical: - Allergies: 21:50 No Known Allergies; ca1 - Home Meds: 21:50 None [Active]; ca1 - PMHx: 21:50 None; ca1 - PSHx: 21:50 None; ca1 - Immunization history:: Adult Immunizations up to date, Last tetanus immunization: unknown. - Social history:: Smoking status: Patient denies any tobacco usage or history of. ROS: 22:03 Eyes: Negative for injury, pain, redness, and discharge, ENT: Negative for injury, jr8 pain, and discharge, Neck: Negative for injury, pain, and swelling, Cardiovascular: Negative for chest pain, palpitations, and edema, Respiratory: Negative for shortness of breath, cough, wheezing, and pleuritic chest pain, Abdomen/GI: Negative for abdominal pain, nausea, vomiting, diarrhea, and constipation, Back: Negative for injury and pain, MS/Extremity: Negative for injury and deformity, Neuro: Negative for headache, weakness, numbness, tingling, and seizure. 22:03 Skin: Positive for abscess, erythema, of the anterior aspect of left upper chest. Exam: 22:03 Eyes: Pupils equal round and reactive to light, extra-ocular motions intact. Lids and jr8 lashes normal. Conjunctiva and sclera are non-icteric and not injected. Cornea within normal limits. Periorbital areas with no swelling, redness, or edema. ENT: Nares patent. No nasal discharge, no septal abnormalities noted. Tympanic membranes are normal and external auditory canals are clear. Oropharynx with no redness, swelling, or masses, exudates, or evidence of obstruction, uvula midline. Mucous membranes moist. Neck: Trachea midline, no thyromegaly or masses palpated, and no cervical lymphadenopathy. Supple, full range of motion without nuchal rigidity, or vertebral point tenderness. No Meningismus. Cardiovascular: Regular rate and rhythm with a normal S1 and S2. No gallops, murmurs, or rubs. Normal PMI, no JVD. No pulse deficits. Respiratory: Lungs have equal breath sounds bilaterally, clear to auscultation and percussion. No rales, rhonchi or wheezes noted. No increased work of breathing, no retractions or nasal flaring. Abdomen/GI: Soft, non-tender, with normal bowel sounds. No distension or tympany. No guarding or rebound. No evidence of tenderness throughout. Back: No spinal tenderness. No costovertebral tenderness. Full range of motion. MS/ Extremity: Pulses equal, no cyanosis. Neurovascular intact. Full, normal range of motion. Neuro: Awake and alert, GCS 15, oriented to person, place, time, and situation. Cranial nerves II-XII grossly intact. Motor strength 5/5 in all extremities. Sensory grossly intact. Cerebellar exam normal. Normal gait. 22:03 Skin: abscess, that is small, approximately 2.5 cm(s), of the anterior aspect of left upper chest, with induration, with pointing. Vital Signs: 21:49 BP 137 / 87; Pulse 84; Resp 15 S; Temp 98.1(TE); Pulse Ox 98% on R/A; Weight 75.3 kg ca1 (R); Height 5 ft. 7 in. (170.18 cm) (R); Pain 6/10; 21:49 Body Mass Index 26.00 (75.30 kg, 170.18 cm) ca1 Procedures: 22:35 I \T\ D: Incision and drainage was performed for an abscess of the anterior aspect of jr8 left upper chest Prepped with Betadine, Anesthetized with 2 ml's 1% Lidocaine. Incised with #11 blade. Drained moderate amount purulent fluid. serosanguinous fluid. Loculations removed. Abscess cavity explored. Packed with iodoform gauze, Dressing: sterile 4x4 gauze, the patient tolerated the procedure well. MDM: 21:57 Patient medically screened. jr8 22:35 Data reviewed: vital signs, nurses notes, and as a result, I will discharge patient. jr8 Data interpreted: Pulse oximetry: on room air is 98 %. Interpretation: normal. Counseling: I had a detailed discussion with the patient and/or guardian regarding: the historical points, exam findings, and any diagnostic results supporting the discharge/admit diagnosis, the need for outpatient follow up, a family practitioner, to return to the emergency department if symptoms worsen or persist or if there are any questions or concerns that arise at home. 02/15 22:29 Order name: I\T\D Setup; Complete Time: 22:29 jd3 Administered Medications: 22:28 Drug: Lidocaine (1 %) 5 mg {Note: to bedside of Amos PAULINO.} Route: Infiltration; jd3 22:44 Follow up: Response: No adverse reaction jd3 Disposition: 02/16 01:27 Co-signature as Attending Physician, Leo Calixto MD. kayley Disposition: 02/16/20 22:36 Discharged to Home. Impression: Cutaneous abscess of chest wall. - Condition is Stable. - Discharge Instructions: Skin Abscess, Incision and Drainage. - Prescriptions for Bactrim DS 800- 160 mg Oral Tablet - take 1 tablet by ORAL route every 12 hours for 7 days; 14 tablet. - Medication Reconciliation Form, Thank You Letter, Antibiotic Education, Prescription Opioid Use form. - Follow up: Private Physician; When: 48 Hours; Reason: Wound Recheck, Recheck today's complaints, Continuance of care, Re-evaluation by your physician. - Problem is new. - Symptoms have improved. Signatures: Leo Calixto MD MD pkl Roszak, Josh, PA PA jr8 Jb Etienne RN RN jd3 Narcisa Ramsey RN RN ca1 Corrections: (The following items were deleted from the chart) 02/15 22:44 22:36 02/16/2020 22:36 Discharged to Home. Impression: Cutaneous abscess of chest wall. jd3 Condition is Stable. Forms are Medication Reconciliation Form, Thank You Letter, Antibiotic Education, Prescription Opioid Use. Follow up: Private Physician; When: 48 Hours; Reason: Wound Recheck, Recheck today's complaints, Continuance of care, Re-evaluation by your physician. Problem is new. Symptoms have improved. jr8
--- NOTE | 2020-02-16 22:37 | ER ---
Nurse's Notes [facility] Name: Lanre Ruth Age: 24 yrs Sex: Male : 1995 Arrival Date: 02/16/2020 Time: 21:44 Bed 24 [facility] MD: Diagnosis: Cutaneous abscess of chest wall Presentation: 02/15 21:49 Chief complaint: Patient states: abscess on L chest x 3 days. Coronavirus screen: ca1 Client denies travel out of the [place] in the last 14 days. At this time, the client does not indicate any symptoms associated with coronavirus-19. Ebola Screen: Patient negative for fever greater than or equal to 101.5 degrees Fahrenheit, and additional compatible Ebola Virus Disease symptoms Patient denies exposure to infectious person. Patient denies travel to an Ebola-affected area in the 21 days before illness onset. No symptoms or risks identified at this time. Initial Sepsis Screen: Does the patient meet any 2 criteria? No. Patient's initial sepsis screen is negative. Does the patient have a suspected source of infection? No. Patient's initial sepsis screen is negative. Risk Assessment: Do you want to hurt yourself or someone else? Patient reports no desire to harm self or others. Onset of symptoms was February 16, 2020. 21:49 Method Of Arrival: Ambulatory ca1 21:49 Acuity: LUÍS 4 ca1 Historical: - Allergies: 21:50 No Known Allergies; ca1 - Home Meds: 21:50 None [Active]; ca1 - PMHx: 21:50 None; ca1 - PSHx: 21:50 None; ca1 - Immunization history:: Adult Immunizations up to date, Last tetanus immunization: unknown. - Social history:: Smoking status: Patient denies any tobacco usage or history of. Screenin:59 Abuse screen: Denies threats or abuse. Nutritional screening: No deficits noted. jd3 Tuberculosis screening: No symptoms or risk factors identified. Fall Risk Ambulatory Aid- None/Bed Rest/Nurse Assist (0 pts). Gait- Normal/Bed Rest/Wheelchair (0 pts) Mental Status- Oriented to own ability (0 pts). Total Amos Fall Scale indicates No Risk (0-24 pts). Assessment: 21:58 General: Appears in no apparent distress. comfortable, Behavior is calm, cooperative, jd3 appropriate for age. Pain: Complains of pain in anterior aspect of left upper chest Quality of pain is described as aching, tender. Neuro: Level of Consciousness is awake, alert, obeys commands, Oriented to person, place, time, situation. Cardiovascular: Denies chest pain, Capillary refill < 3 seconds Patient's skin is warm and dry. Respiratory: Airway is patent Respiratory effort is even, unlabored, Respiratory pattern is regular, symmetrical, Denies cough, shortness of breath. GI: No signs and/or symptoms were reported involving the gastrointestinal system. : No signs and/or symptoms were reported regarding the genitourinary system. EENT: No signs and/or symptoms were reported regarding the EENT system. Derm: Skin is intact, Skin is dry, Skin is normal, Skin temperature is warm Wound noted anterior aspect of left upper chest Wound is abscess noted to left upper chest. red, raised, and warm to the touch. Musculoskeletal: Circulation, motion, and sensation intact. Range of motion: intact in all extremities. Vital Signs: 21:49 BP 137 / 87; Pulse 84; Resp 15 S; Temp 98.1(TE); Pulse Ox 98% on R/A; Weight 75.3 kg ca1 (R); Height 5 ft. 7 in. (170.18 cm) (R); Pain 6/10; 21:49 Body Mass Index 26.00 (75.30 kg, 170.18 cm) ca1 ED Course: 21:44 Patient arrived in ED. es 21:50 Triage completed. ca1 21:50 Amos Ureña PA is PHCP. jr8 21:50 Leo Calixto MD is Attending Physician. jr8 21:50 Arm band placed on right wrist. ca1 21:53 Jb Etienne RN is Primary Nurse. jd3 21:59 Patient has correct armband on for positive identification. Bed in low position. Call jd3 light in reach. Side rails up X 1. Pulse ox on. NIBP on. 22:29 Assist provider with I \T\ D: of an abscess on left upper chest Set up I\T\D tray. gigi 3 Performed by Amos PAULINO Wound packed. iodoform gauze, Patient tolerated well. 22:43 IV discontinued, intact, bleeding controlled, No redness/swelling at site. Pressure jd3 dressing applied. Administered Medications: 22:28 Drug: Lidocaine (1 %) 5 mg {Note: to bedside of Amos PAULINO.} Route: Infiltration; jd3 :44 Follow up: Response: No adverse reaction jd3 Outcome: 22:36 Discharge ordered by . jaquelin :43 Discharged to home ambulatory, with family. jd3 :43 Condition: stable 22:43 Discharge instructions given to patient, Instructed on discharge instructions, follow up and referral plans. medication usage, Demonstrated understanding of instructions, follow-up care, medications, Prescriptions given X 1. :44 Patient left the ED. jd3 Signatures: Ashleigh De La Rosa Josh, PA PA jrJb Vázquez RN RN jNarcisa Temple RN RN ca1
[2020-02-16 23:48] VITALS: BP 137/87; TEMP 98.1; O2SAT 98
== END 2020-02-16 22:44 | disposition home or self-care (01) ==
LOC: ER 21:40
PROC: 0J960ZZ Drainage of Chest Subcutaneous Tissue and Fascia, Open Approach (ICD-10-PCS; principal; 2020-02-16)
DX: L02.213 Cutaneous abscess of chest wall (principal)